=== PATIENT | female | born 2000 | race Caucasian/White ===

== ENCOUNTER 2022-05-02 18:57 | Emergency (ER) | payer OTHER ==
[2022-05-02 19:14] VITALS: BP 118/71; PULSE 78; RESP 18; TEMP 97.6; BMI 36.0
== END 2022-05-02 21:54 | disposition home or self-care (01) ==
LOC: JERFT 18:57 → JER 18:57 → JERFT 21:54
DX: O30.032 Twin pregnancy, monochorionic/diamniotic, second trimester (principal); Z3A.15 15 weeks gestation of pregnancy
CPT/HCPCS: 76815-TC; 99283-25

== ENCOUNTER 2022-10-19 08:00 | Inpatient (IN) | payer OTHER ==
[2022-10-19] MEDS ORDERED: ELECTROLYTE-148 SOLN 500 ML IV SCH ×2 (08:15→08:45)
[2022-10-19] MEDS ORDERED: CITRIC ACID/SODIUM CITRATE 30 ML UNIT-DOSE CUP PO ONE (08:15)
[2022-10-19 08:58] LABS: BASO % 0.3 % (0-2.0); EOS % 0.9 % (0-4.5); HEMATOCRIT 28.5 % (32.4-45.2); HEMOGLOBIN 10.2 GM/dL (10.7-15.3); LYMPH % 18.6 % (8-40); MCHC 35.9 g/dl (32.0-36.0); MEAN CELL VOLUME 80.7 fl (80-96); MEAN PLT VOLUME 10.1 fl (7.5-11.1); MONO % 6.6 % (3.8-10.2); NEUT % 73.6 % (42.8-82.8); PLATELET COUNT 90 10^3/uL (134-434); RBC 3.53 M/mm3 (3.60-5.2); RDW 15.2 % (11.6-15.6); WHITE BLOOD COUNT 7.4 K/mm3 (4.0-10.0)
[2022-10-19 09:02] VITALS: BMI 40.7
[2022-10-19] MEDS ORDERED: morphine SULFATE/PF 1 MG/2 ML (2cc Syringe - QUVA) ONE (10:00)
[2022-10-19] MEDS ORDERED: PHENYLEPHRINE HCL 10 MG/1 ML SINGLE DOSE VIAL ONE (10:00)
[2022-10-19 10:13] LABS: POTASSIUM 3.9 mmol/L (3.5-5.1)
[2022-10-19 10:15] LABS: CALCIUM 8.2 mg/dL (8.5-10.1)
[2022-10-19 10:16] LABS: ALBUMIN 2.5 g/dl (3.4-5.0); BLOOD UREA NITROGEN 9.5 mg/dL (7-18)
[2022-10-19 10:19] LABS: CREATININE 0.7 mg/dL (0.55-1.3)
[2022-10-19 10:20] LABS: BILIRUBIN,TOTAL 0.4 mg/dL (0.2-1)
[2022-10-19 10:21] LABS: TOT PROT 5.8 g/dl (6.4-8.2)
[2022-10-19 10:32] LABS: INR 1.02 (0.83-1.09); PROTHROMBIN TIME (PATIENT) 11.8 SEC (9.7-13.0)
[2022-10-19 10:35] LABS: ACTIVATED PTT 26.9 SECONDS (25.2-36.5)
[2022-10-19] MEDS ORDERED: MISOPROSTOL 200 MCG TABLET ONE ×2 (10:49→10:54)
[2022-10-19] MEDS ORDERED: OXYTOCIN 10 UNITS/ML VIAL ONE ×4 (11:06)
[2022-10-19] MEDS ORDERED: ceFAZolin SODIUM 1 GM VIAL ONE ×3 (11:06)
[2022-10-19] MEDS ORDERED: ONDANSETRON 4 MG/2 ML VIAL IVPUSH PRN (11:09)
[2022-10-19] MEDS ORDERED: IBUPROFEN 600 MG TABLET (FP) PO PRN (11:09)
[2022-10-19] MEDS: MISOPROSTOL 200 MCG TABLET PO SCH ×2 (11:20→20:00)
[2022-10-19] MEDS: ACETAMINOPHEN 1000 MG/100 ML BAG IVPB SCH ×3 (12:00→23:32)
[2022-10-19] MEDS ORDERED: ONDANSETRON 4 MG/2 ML VIAL IVPB PRN (13:11)
[2022-10-19] MEDS ORDERED: ACETAMINOPHEN 1000 MG/100 ML BAG IVPB PRN (13:11)
[2022-10-19] MEDS ORDERED: SENNOSIDES/DOCUSATE COMBO (SENNA PLUS) TABLET (UD) PO PRN (13:11)
[2022-10-19] MEDS: OXYTOCIN 20 UNITS in 0.9% NS 20 UNIT/1,000 ML INFUS.BAG IV SCH ×3 (14:30→22:26)
[2022-10-19] MEDS ORDERED: CARBOPROST TROMETHAMINE 250 MCG/ML AMPUL IM ONE (14:58)
[2022-10-19 18:23] VITALS: RESP 18
[2022-10-20] MEDS: ACETAMINOPHEN 1000 MG/100 ML BAG IVPB SCH (06:03)
[2022-10-20] MEDS: oxyCODONE HCL 5 MG TABLET PO PRN ×3 (06:06→21:55)
[2022-10-20] MEDS: SIMETHICONE 80 MG TAB.CHEW (FP) PO PRN ×3 (06:06→21:54)
[2022-10-20 07:42] LABS: BASO % 0.3 % (0-2.0); EOS % 0.3 % (0-4.5); HEMATOCRIT 24.6 % (32.4-45.2); HEMOGLOBIN 8.6 GM/dL (10.7-15.3); LYMPH % 13.3 % (8-40); MCH 28.6 pg (25.7-33.7); MEAN CELL VOLUME 81.9 fl (80-96); MEAN PLT VOLUME 9.8 fl (7.5-11.1); MONO % 6.6 % (3.8-10.2); NEUT % 79.5 % (42.8-82.8); PLATELET COUNT 78 10^3/uL (134-434); WHITE BLOOD COUNT 9.4 K/mm3 (4.0-10.0)
[2022-10-20] MEDS: PRENATAL VITAMINS W/ FOLIC ACID TABLET (FP) PO SCH (09:14)
[2022-10-20] MEDS: FERROUS SO4 325 MG TABLET (FP) PO SCH ×3 (11:21→21:54)
[2022-10-20] MEDS: DOCUSATE SODIUM 100 MG CAPSULE (FP) PO SCH ×3 (11:21→21:54)
[2022-10-20] MEDS ORDERED: BISACODYL 10 MG SUPP.RECT RC PRN (13:11)
[2022-10-20] MEDS: ACETAMINOPHEN 325 MG TABLET (FP) PO PRN ×2 (15:08→21:54)
[2022-10-20] MEDS ORDERED: DIPHTH,PERTUSS(ACELL),TET 0.5 ML DISP.SYRIN IM ONE (17:35)
[2022-10-21] MEDS: SIMETHICONE 80 MG TAB.CHEW (FP) PO PRN ×3 (05:10→22:28)
[2022-10-21] MEDS: FERROUS SO4 325 MG TABLET (FP) PO SCH ×3 (05:10→22:28)
[2022-10-21] MEDS: DOCUSATE SODIUM 100 MG CAPSULE (FP) PO SCH ×3 (05:10→22:28)
[2022-10-21] MEDS: oxyCODONE HCL 5 MG TABLET PO PRN ×4 (05:10→22:56)
[2022-10-21] MEDS: ACETAMINOPHEN 325 MG TABLET (FP) PO PRN ×3 (05:12→17:53)
[2022-10-21] MEDS: PRENATAL VITAMINS W/ FOLIC ACID TABLET (FP) PO SCH (09:09)
[2022-10-22] MEDS: FERROUS SO4 325 MG TABLET (FP) PO SCH (06:18)
[2022-10-22] MEDS: DOCUSATE SODIUM 100 MG CAPSULE (FP) PO SCH (06:18)
[2022-10-22] MEDS: SIMETHICONE 80 MG TAB.CHEW (FP) PO PRN ×2 (06:18→10:15)
[2022-10-22] MEDS: ACETAMINOPHEN 325 MG TABLET (FP) PO PRN ×2 (06:18→10:15)
[2022-10-22 09:49] VITALS: BP 111/73; PULSE 72; TEMP 97.8
[2022-10-22] MEDS: PRENATAL VITAMINS W/ FOLIC ACID TABLET (FP) PO SCH (10:15)
== END 2022-10-22 14:15 | disposition home or self-care (01) | DRG 540 ==
LOC: JLDR 08:00 → J3W 13:50
PROVIDERS: ADMIT Obstetrics & Gynecology; ATTEND Obstetrics & Gynecology
PROC: 10D00Z1 Extraction of Products of Conception, Low, Open Approach (ICD-10-PCS; principal; 2022-10-19)
PROC: 3E0334Z Introduction of Serum, Toxoid and Vaccine into Peripheral Vein, Percutaneous Approach (ICD-10-PCS; 2022-10-20)
DX: O30.043 Twin pregnancy, dichorionic/diamniotic, third trimester (principal); O99.113 Other diseases of the blood and blood-forming organs and certain disorders involving the immune mechanism complicating pregnancy, third trimester; O36.0930 Maternal care for other rhesus isoimmunization, third trimester, not applicable or unspecified; Z3A.38 38 weeks gestation of pregnancy; Z37.2 Twins, both liveborn
CPT/HCPCS: 36415; 80053; 82570; 84156; 85025; 85027; 85032; 85461; 85610; 85730; 86780; 86850; 86900; 86901; 86999; 87389; 88307-TC; C9803-CS; U0003; U0005